=== PATIENT | female | born 1960 | race Caucasian/White ===

== ENCOUNTER → 2021-04-07 | Outpatient (CLI) | payer SELFPAY | LOC: M LABSMTC 11:46 | PROVIDERS: ATTEND Family Medicine | DX: Z20.822 Contact with and (suspected) exposure to COVID-19 (principal) | CPT/HCPCS: C9803; U0003 ==

== ENCOUNTER → 2021-04-15 | Outpatient (CLI) | payer SELFPAY | LOC: M LABSMTC 10:01 | PROVIDERS: ATTEND Pediatrics | DX: Z20.822 Contact with and (suspected) exposure to COVID-19 (principal) ==

== ENCOUNTER → 2021-06-16 | Outpatient (CLI) | payer SELFPAY | LOC: M LABSMTC 09:06 | PROVIDERS: ATTEND Pediatrics | DX: Z20.822 Contact with and (suspected) exposure to COVID-19 (principal) | CPT/HCPCS: C9803; U0003 ==

== ENCOUNTER → 2021-07-21 | Outpatient (CLI) | payer SELFPAY | LOC: M LABSMTC 09:07 | PROVIDERS: ATTEND Pediatrics | DX: Z20.822 Contact with and (suspected) exposure to COVID-19 (principal) | CPT/HCPCS: C9803; U0003 ==

== ENCOUNTER → 2021-08-23 | Outpatient (CLI) | payer SELFPAY | LOC: M LABSMTC 09:52 | PROVIDERS: ATTEND Pediatrics | DX: Z20.822 Contact with and (suspected) exposure to COVID-19 (principal) ==

== ENCOUNTER → 2021-08-28 | Outpatient (CLI) | payer SELFPAY | LOC: M LABSMTC 09:04 | PROVIDERS: ATTEND Pediatrics | DX: Z20.822 Contact with and (suspected) exposure to COVID-19 (principal) ==

== ENCOUNTER → 2022-02-07 | Outpatient (CLI) | payer SELFPAY | LOC: M LABSMTC 09:32 → MERGE 09:32 | PROVIDERS: ATTEND Pediatrics | DX: Z20.822 Contact with and (suspected) exposure to COVID-19 (principal) ==